=== PATIENT | female | born 1935 | race Hispanic/Latino ===

== ENCOUNTER → 2017-11-27 | Outpatient (CLI) | payer OTHER | END | disposition home or self-care (01) | LOC: RAH 11:33 | PROVIDERS: ATTEND Internal Medicine | DX: I70.202 Unspecified atherosclerosis of native arteries of extremities, left leg (principal); M79.661 Pain in right lower leg; M79.605 Pain in left leg; I10 Essential (primary) hypertension; E11.9 Type 2 diabetes mellitus without complications; E78.2 Mixed hyperlipidemia | CPT/HCPCS: 93925 ==

== ENCOUNTER 2018-11-07 16:30 | Emergency (ER) | payer OTHER | END 2018-11-07 18:51 | disposition home or self-care (01) | LOC: EDH 16:30 | DX: S93.422A Sprain of deltoid ligament of left ankle, initial encounter (principal); X50.1XXA Overexertion from prolonged static or awkward postures, initial encounter; Y93.89 Activity, other specified; Y92.098 Other place in other non-institutional residence as the place of occurrence of the external cause; Y99.8 Other external cause status | CPT/HCPCS: 73610 ==

== ENCOUNTER 2019-08-04 13:43 | Observation (INO) | payer OTHER ==
[~2019-08-04] VITALS: Ht 157.5 cm; Wt 70.5 kg
[2019-08-04] MEDS ORDERED: NITROGLYCERIN 1GM/1 INCH PACKET TD ONE (14:55)
[2019-08-04 14:58] LABS: BASOPHILS % (AUTO) 0.4 % (0.0-5.0); EOSINOPHILS % (AUTO) 1.6 % (0.0-8.0); HEMATOCRIT 41.1 % (36-48); MEAN CORPUSCULAR HEMOGLOBIN 28.3 pg (27.0-33.0); MEAN CORPUSCULAR HGB CONC 32.4 g/dL (32.0-36.0); MEAN CORPUSCULAR VOLUME 87.4 fL (79-99); MONOCYTES % (AUTO) 6.6 % (3.0-13.0); NEUTROPHILS % (AUTO) 61.2 % (40.0-77.0); PLATELET COUNT (AUTO) 224 K/uL (130-400); RED CELL DISTRIBUTION WIDTH 13.3 % (11.0-15.5); WHITE BLOOD COUNT (AUTO) 10.3 K/uL (4.8-10.8)
[2019-08-04 15:05] LABS: CREATININE 1.1 mg/dL (0.5-1.5); POTASSIUM 3.8 mmol/L (3.5-5.1)
[2019-08-04 15:10] LABS: BILIRUBIN,TOTAL 0.6 mg/dL (0.2-1.0); TOTAL PROTEIN, SERUM 8.6 g/dL (6.0-8.3)
[2019-08-04 15:14] LABS: INR 0.95 (0.85-1.15); PARTIAL THROMBOPLASTIN TIME 25.2 SEC (26.3-35.5)
[2019-08-04] MEDS ORDERED: LIDOCAINE 1%-EPI 1:100,000 20 ML VIAL IJ ONE (15:26)
[2019-08-04] MEDS ORDERED: SODIUM CHLORIDE 0.9% 500ML 500 ML IV ONE (15:31)
[2019-08-04] MEDS ORDERED: LABETALOL 20 MG/4 ML DISP.SYRIN IV ONE (15:54)
[2019-08-04] MEDS ORDERED: DEXTROSE 50%-WATER 50 ML DISP.SYRIN IV PRN (18:45)
[2019-08-04] MEDS ORDERED: ACETAMINOPHEN 325 MG TAB PO PRN ×2 (18:45)
[2019-08-04] MEDS ORDERED: ONDANSETRON HCL 4 MG/2 ML VIAL IV PRN (18:45)
[2019-08-04] MEDS ORDERED: GLUCAGON 1MG KIT 1 MG ML IM PRN (18:45)
[2019-08-04] MEDS ORDERED: HYDRALAZINE HCL 20 MG/ML VIAL IV PRN (18:45)
[2019-08-04 19:47] LABS: APPEARANCE,URINE Clear (CLEAR); BILIRUBIN,URINE Negative (NEGATIVE); COLOR,URINE Yellow (YELLOW); GLUCOSE, URINE (UA) Negative (NEGATIVE); KETONES,URINE Negative (NEGATIVE); LEUKOCYTE ESTERASE ,URINE Negative (NEGATIVE); NITRATE,URINE Negative (NEGATIVE); OCCULT BLOOD,URINE Negative (NEGATIVE); PH,URINE 5.5 (5.0-8.0); PROTEIN,URINE Negative (NEGATIVE); UROBILINOGEN,URINE 0.2 mg/dL (0.2-1.0)
[2019-08-04 20:11] LABS: BACTERIA,URINE None Seen /HPF (None Seen); RBC,URINE 0-1 /HPF (0-1); WBC,URINE 0-1 /HPF (0-1)
[2019-08-04 20:38] VITALS: BP 166/69
[2019-08-04] MEDS: FAMOTIDINE 20MG TAB 20 MG TAB PO SCH (21:30)
[2019-08-04] MEDS: ATORVASTATIN CALCIUM 20 MG TABLET PO SCH (21:30)
[2019-08-04] MEDS: INSULIN HUMULIN R 100 UNIT/ML 3ML SQ SCH (21:32)
--- NOTE | 2019-08-04 22:00 | NUR ---
Home Meds Patient informed to bring home medications in the morning. Pt Alert X3, stable, good, denies any issue at this time. Call light within reach.
[2019-08-05] VITALS (8 sets, daily range): BP systolic 150–172; BP diastolic 60–82
--- NOTE | 2019-08-05 02:00 | NUR ---
SPOKE WITH [facility] HOSPITALIST ABOUT PATIENT CONCERN. NEW ORDERS RECEIVED INFORMED MD ABOUT TINGLING TO RIGHT FINGERS, AND LEFT LOWER FOOT. PATIENT ALSO IS SOMEWHAT ANXIOUS, AOX3, STABLE, AND DENIES ANY CHEST PAIN. BP ALSO BETTER AFTER HYDRALAZINE IV DOSE. CARDIAC PANEL SHOWS TROPONIN DECREASE FROM 0.20 TO 0.17.
[2019-08-05] MEDS ORDERED: HYDROXYZINE HCL 25 MG TABLET PO SCH (02:45)
[2019-08-05] MEDS ORDERED: HYDROXYZINE HCL 25 MG TABLET ONE (03:15)
[2019-08-05 03:59] LABS: BASOPHILS % (AUTO) 0.4 % (0.0-5.0); HEMATOCRIT 34.6 % (36-48); LYMPHOCYTES % (AUTO) 40.8 % (21.0-51.0); MEAN CORPUSCULAR HEMOGLOBIN 28.5 pg (27.0-33.0); MEAN CORPUSCULAR HGB CONC 33.2 g/dL (32.0-36.0); MEAN CORPUSCULAR VOLUME 85.6 fL (79-99); MONOCYTES % (AUTO) 9.7 % (3.0-13.0); NEUTROPHILS % (AUTO) 46.7 % (40.0-77.0); PLATELET COUNT (AUTO) 208 K/uL (130-400); RED BLOOD CELL COUNT(AUTO) 4.04 MIL/uL (4.00-5.50); RED CELL DISTRIBUTION WIDTH 13.4 % (11.0-15.5); WHITE BLOOD COUNT (AUTO) 9.8 K/uL (4.8-10.8)
[2019-08-05 04:20] LABS: ALBUMIN 3.3 g/dL (3.5-5.0); BILIRUBIN,DIRECT 0.1 mg/dL (0.0-0.3); BILIRUBIN,TOTAL 0.5 mg/dL (0.2-1.0); CREATININE 0.9 mg/dL (0.5-1.5); POTASSIUM 3.4 mmol/L (3.5-5.1); TOTAL PROTEIN, SERUM 6.9 g/dL (6.0-8.3)
[2019-08-05] MEDS: INSULIN HUMULIN R 100 UNIT/ML 3ML SQ SCH ×4 (06:05→21:00)
--- NOTE | 2019-08-05 06:50 | NUR ---
Patient aox3, family friend at bedside. Patient denies any chest pain and or tingling to upper/lower extremities. Call light within reach, no issues noted. patient verbalizes understanding regarding bedrest and pressing the call light if needs assistance.
[2019-08-05] MEDS: FAMOTIDINE 20MG TAB 20 MG TAB PO SCH ×2 (08:03→21:52)
[2019-08-05] MEDS: AMLODIPINE BESYLATE 5 MG TAB PO SCH (08:03)
[2019-08-05] MEDS ORDERED: LISINOPRIL 40 MG TABLET PO SCH (09:00)
[2019-08-05] MEDS ORDERED: SITA100T12 PO (09:08)
[2019-08-05] MEDS ORDERED: ATOR20TA65 PO (09:08)
[2019-08-05] MEDS ORDERED: METF-446 PO (09:08)
[2019-08-05] MEDS ORDERED: AMLO5TAB5 PO ×2 (09:08→14:09)
[2019-08-05] MEDS ORDERED: LISI40TA4 PO (09:08)
[2019-08-05] MEDS ORDERED: NON-FORMULARY MEDICATION 1 EACH (Sitagliptin Phosphate (Januvia) 100 MG) PO SCH (09:15)
--- NOTE | 2019-08-05 15:12 | NUR ---
[id number] Patient signed MERINO Letter, I faxed Merino Letter to [phone] and placed in chart under consent tab.
--- NOTE | 2019-08-05 15:36 | NUR ---
INITIAL Patient lives alone. Her spouse recently was placed in a halfway long term care administrator. Emergency contact is friend, Crystal Clark, [phone]. No home services but has private pay sitter. DME: cane, wheelchair, shower chair, walker with seat. Patient reports she is independent in completing ADL's and drives. PCP is Dr. Corinne Kilpatrick. Pharmacy is [facility] located in [place]. DCP is home. Addendum: 08/05/19 at 1538 by CRYSTAL DE JESUS SS Amended: Links added.
--- NOTE | 2019-08-05 16:49 | NUR ---
NOTIFIED DR. Anisa NOLASCO PT. STATES SHE IS UNABLE TO BE DISCHARGED TODAY AND HAS TO STAY "UNTIL TOMORROW, BECAUSE I LIVE ALONE. THERE'S NO ONE TO STAY WITH ME." ORDER RECEIVED, OK TO HOLD DISCHARGE.
[2019-08-05] MEDS ORDERED: POTASSIUM CHLORIDE 20 MEQ ERTAB PO PRN (19:15)
[2019-08-05] MEDS ORDERED: LIDOCAINE HCL-MPF 1% 2ML VIAL IV PRN (19:15)
[2019-08-05] MEDS ORDERED: POTASSIUM CHLORIDE 20MEQ/100ML 100 ML IV PRN (19:15)
[2019-08-05] MEDS ORDERED: POTASSIUM CHLORIDE 10% ELIXIR 20 MEQ/15 ML UDCUP PO PRN (19:15)
[2019-08-05] MEDS ORDERED: ATORVASTATIN CALCIUM 20 MG TABLET PO SCH (21:00)
[2019-08-05] MEDS ORDERED: NON-FORMULARY MEDICATION 1 EACH (Metformin HCl 1,000 MG) PO SCH (21:00)
[2019-08-05] MEDS: ATORVASTATIN CALCIUM 20 MG TABLET PO SCH ×2 (21:51→21:54)
[2019-08-05] MEDS: HYDRALAZINE HCL 10 MG TABLET PO SCH (21:51)
[2019-08-05] MEDS: LISINOPRIL 40 MG TABLET PO SCH (21:51)
[2019-08-05] MEDS: MAGNESIUM OXIDE 400 MG TABLET PO SCH (21:52)
[2019-08-06 04:00] VITALS: BP 165/69
[2019-08-06 04:06] VITALS: BP 160/59
[2019-08-06] MEDS: INSULIN HUMULIN R 100 UNIT/ML 3ML SQ SCH ×2 (05:51→11:47)
[2019-08-06 07:37] VITALS: BP 161/74
--- NOTE | 2019-08-06 07:50 | NUR ---
DR. Anisa NOLASCO IN ROOM SPEAKING WITH PT. RE:DISCHARGE DISPOSITION. QUESTIONS ANSWERED BY DR. NOLASCO.
[2019-08-06] MEDS ORDERED: AMLODIPINE BESYLATE 5 MG TAB PO SCH (09:00)
[2019-08-06] MEDS: LISINOPRIL 40 MG TABLET PO SCH (09:07)
[2019-08-06] MEDS: FAMOTIDINE 20MG TAB 20 MG TAB PO SCH (09:07)
[2019-08-06] MEDS: MAGNESIUM OXIDE 400 MG TABLET PO SCH (09:07)
[2019-08-06] MEDS: HYDRALAZINE HCL 10 MG TABLET PO SCH ×2 (09:08→13:30)
[2019-08-06] MEDS: AMLODIPINE BESYLATE 5 MG TAB PO SCH (09:08)
[2019-08-06 11:27] VITALS: BP 184/74
[2019-08-06 13:09] VITALS: BP 153/82
--- NOTE | 2019-08-06 14:30 | NUR ---
HL REMOVED, CATHETER INTACT. DISCHARGE INSTRUCTIONS GIVEN, PT. VERBALIZED UNDERSTANDING.
--- NOTE | 2019-08-06 14:43 | NUR ---
DISCHARGED HOME VIA W/C WITH BELONGINGS ACCOMPANIED BY JEANA MARIE.
== END 2019-08-06 14:35 | disposition home or self-care (01) ==
LOC: EDH 13:43 → INTOOBSV 18:31 → EDHIP 18:31 → 2DH 20:35
PROVIDERS: ADMIT Internal Medicine; ATTEND Internal Medicine
DX: S01.01XA Laceration without foreign body of scalp, initial encounter (principal); I16.0 Hypertensive urgency; E78.2 Mixed hyperlipidemia; I13.10 Hypertensive heart and chronic kidney disease without heart failure, with stage 1 through stage 4 chronic kidney disease, or unspecified chronic kidney disease; E11.22 Type 2 diabetes mellitus with diabetic chronic kidney disease; N18.2 Chronic kidney disease, stage 2 (mild); E11.42 Type 2 diabetes mellitus with diabetic polyneuropathy; E11.51 Type 2 diabetes mellitus with diabetic peripheral angiopathy without gangrene; E11.59 Type 2 diabetes mellitus with other circulatory complications; I70.0 Atherosclerosis of aorta; F41.1 Generalized anxiety disorder; I71.03 Dissection of thoracoabdominal aorta; Z90.710 Acquired absence of both cervix and uterus; Z90.49 Acquired absence of other specified parts of digestive tract; Z79.84 Long term (current) use of oral hypoglycemic drugs; Z79.899 Other long term (current) drug therapy; Z88.0 Allergy status to penicillin; Z91.048 Other nonmedicinal substance allergy status; W10.9XXA Fall (on) (from) unspecified stairs and steps, initial encounter; Y93.89 Activity, other specified; Y92.89 Other specified places as the place of occurrence of the external cause
CPT/HCPCS: 12001; 36415 ×2; 70450; 72125; 80048; 80053; 80076; 81001; 82948 ×7; 84484 ×2; 85025 ×2; 85610; 85730; 93005; 96374; 99285; A4600; G0378 ×44; J0360; J1815 ×3; J3490; J7040

== ENCOUNTER → 2020-07-22 | Outpatient (CLI) | payer OTHER ==
[~2020-07-22] MED LIST: AMLO5TAB5 PO; ATOR20TA65 PO; LISI40TA9 PO; METF-446 PO; SITA100T12 PO
[2020-07-22 10:35] LABS: BASOPHILS % (AUTO) 0.6 % (0.0-5.0); HEMATOCRIT 42.4 % (36-48); LYMPHOCYTES % (AUTO) 35.5 % (21.0-51.0); MEAN CORPUSCULAR HEMOGLOBIN 29.1 pg (27.0-33.0); MEAN CORPUSCULAR HGB CONC 33.3 g/dL (32.0-36.0); MEAN CORPUSCULAR VOLUME 87.6 fL (79-99); MONOCYTES % (AUTO) 6.2 % (3.0-13.0); NEUTROPHILS % (AUTO) 54.6 % (40.0-77.0); PLATELET COUNT (AUTO) 207 K/uL (130-400); RED BLOOD CELL COUNT(AUTO) 4.84 MIL/uL (4.00-5.50); RED CELL DISTRIBUTION WIDTH 12.9 % (11.0-15.5); WHITE BLOOD COUNT (AUTO) 6.9 K/uL (4.8-10.8)
[2020-07-22 10:54] LABS: ALBUMIN 3.6 g/dL (3.5-5.0); BILIRUBIN,TOTAL 0.6 mg/dL (0.2-1.0); CREATININE 1.1 mg/dL (0.5-1.5); HEMOGLOBIN A1C 7.2 % (4.0-6.0); POTASSIUM 4.3 mmol/L (3.5-5.1); TOTAL PROTEIN, SERUM 7.7 g/dL (6.0-8.3)
== END | disposition home or self-care (01) ==
LOC: LAB 09:50
PROVIDERS: ATTEND Internal Medicine
DX: E78.2 Mixed hyperlipidemia (principal); E11.618 Type 2 diabetes mellitus with other diabetic arthropathy; I13.10 Hypertensive heart and chronic kidney disease without heart failure, with stage 1 through stage 4 chronic kidney disease, or unspecified chronic kidney disease
CPT/HCPCS: 36415; 80053; 80061; 82043; 83036; 85025

== ENCOUNTER → 2021-01-22 | Outpatient (CLI) | payer OTHER | END | disposition home or self-care (01) | LOC: RAH 12:31 | PROVIDERS: ATTEND Internal Medicine | DX: M17.12 Unilateral primary osteoarthritis, left knee (principal) | CPT/HCPCS: 73560 ==

== ENCOUNTER 2021-03-06 15:21 | Inpatient (IN) | payer OTHER ==
[~2021-03-06] VITALS: Ht 149.9 cm; Wt 77.2 kg
[2021-03-06 15:39] LABS: BASOPHILS % (AUTO) 0.5 % (0.0-5.0); EOSINOPHILS % (AUTO) 2.1 % (0.0-8.0); HEMATOCRIT 40.9 % (36-48); LYMPHOCYTES % (AUTO) 35.4 % (21.0-51.0); MEAN CORPUSCULAR HEMOGLOBIN 29.9 pg (27.0-33.0); MEAN CORPUSCULAR HGB CONC 34.2 g/dL (32.0-36.0); MEAN CORPUSCULAR VOLUME 87.4 fL (79-99); NEUTROPHILS % (AUTO) 53.8 % (40.0-77.0); PLATELET COUNT (AUTO) 209 K/uL (130-400); RED BLOOD CELL COUNT(AUTO) 4.68 MIL/uL (4.00-5.50); RED CELL DISTRIBUTION WIDTH 12.9 % (11.0-15.5); WHITE BLOOD COUNT (AUTO) 9.5 K/uL (4.8-10.8)
[2021-03-06] MEDS ORDERED: ASPIRIN 325MG EC TAB PO ONE (15:44)
[2021-03-06] MEDS ORDERED: NITROGLYCERIN 1GM OINT 1 INCH/1GM TD ONE ×2 (15:44→16:00)
[2021-03-06] MEDS ORDERED: NITROGLYCERIN 0.4 MG SL TAB SL ONE (15:44)
[2021-03-06] MEDS ORDERED: METOPROLOL TARTRATE 1 MG/ML 5ML VIAL IV ONE ×3 (15:44→18:20)
[2021-03-06] MEDS ORDERED: DILTIAZEM 50MG VIAL IV ONE (15:45)
[2021-03-06 15:51] LABS: CREATININE 0.9 mg/dL (0.5-1.5)
[2021-03-06 15:56] LABS: ALBUMIN 3.8 g/dL (3.5-5.0); BILIRUBIN,TOTAL 0.5 mg/dL (0.2-1.0); MAGNESIUM 2.1 mg/dL (1.80-2.40); TOTAL PROTEIN, SERUM 8.2 g/dL (6.0-8.3)
[2021-03-06] MEDS ORDERED: DILTIAZEM 25MG INJ IVP SCH (16:00)
[2021-03-06] MEDS ORDERED: ASPIRIN 325MG TAB PO ONE (16:00)
[2021-03-06] MEDS ORDERED: NITROGLYCERIN 0.4 MG SL TAB SL PRN (16:00)
[2021-03-06 16:13] LABS: B-TYPE NATRIURETIC PEPTIDE 223 pg/mL (0-100)
[2021-03-06 16:17] LABS: APPEARANCE,URINE Clear (CLEAR); BILIRUBIN,URINE Negative (NEGATIVE); COLOR,URINE Yellow (YELLOW); GLUCOSE, URINE (UA) Negative (NEGATIVE); KETONES,URINE Negative (NEGATIVE); LEUKOCYTE ESTERASE ,URINE Negative (NEGATIVE); NITRATE,URINE Negative (NEGATIVE); OCCULT BLOOD,URINE Negative (NEGATIVE); PROTEIN,URINE Negative (NEGATIVE); UROBILINOGEN,URINE 0.2 mg/dL (0.2-1.0)
[2021-03-06] MEDS: METOPROLOL TARTRATE 25 MG TAB PO SCH ×2 (18:35→19:20)
[2021-03-06] MEDS ORDERED: HYDR-4153 PO (19:35)
[2021-03-06 20:05] VITALS: BP 129/93
[2021-03-06] MEDS: ENOXAPARIN SODIUM 60 MG/0.6 ML SQ SCH (20:50)
[2021-03-06] MEDS ORDERED: PITA2TAB2 PO (21:17)
[2021-03-06] MEDS ORDERED: CLOPIDOGREL 300MG TAB PO ONE (22:30)
[2021-03-06] MEDS ORDERED: CLOPIDOGREL 300MG TAB ONE (22:52)
[2021-03-06 23:50] VITALS: BP 133/78
[2021-03-07 03:54] VITALS: BP 138/85
[2021-03-07 06:45] LABS: BASOPHILS % (AUTO) 0.6 % (0.0-5.0); LYMPHOCYTES % (AUTO) 37.9 % (21.0-51.0); MEAN CORPUSCULAR HGB CONC 32.8 g/dL (32.0-36.0); MEAN CORPUSCULAR VOLUME 88.2 fL (79-99); MONOCYTES % (AUTO) 9.2 % (3.0-13.0); PLATELET COUNT (AUTO) 211 K/uL (130-400); RED BLOOD CELL COUNT(AUTO) 4.42 MIL/uL (4.00-5.50); WHITE BLOOD COUNT (AUTO) 7.9 K/uL (4.8-10.8)
[2021-03-07 07:12] LABS: POTASSIUM 3.9 mmol/L (3.5-5.1)
[2021-03-07] MEDS ORDERED: ATORVASTATIN 40 MG TABLET PO SCH (07:30)
[2021-03-07 08:00] VITALS: BP 135/79
[2021-03-07 08:12] LABS: HEMOGLOBIN A1C 7.1 % (4.0-6.0)
[2021-03-07 08:17] LABS: CHOLESTEROL 218 mg/dL (<200); HDL CHOLESTEROL 49 mg/dL (35-85); LDL DIRECT 138 mg/dL (0-99); TRIGLYCERIDES 127 mg/dL (30-200)
[2021-03-07] MEDS: METOPROLOL TARTRATE 25 MG TAB PO SCH ×3 (08:40→20:39)
[2021-03-07] MEDS: NITROGLYCERIN 1GM OINT 1 INCH/1GM TD SCH ×3 (08:40→23:50)
[2021-03-07] MEDS: ENOXAPARIN SODIUM 60 MG/0.6 ML SQ SCH ×2 (08:41→20:40)
[2021-03-07] MEDS ORDERED: ASPIRIN 325MG TAB PO SCH (09:00)
[2021-03-07] MEDS ORDERED: PANTOPRAZOLE 40 MG TAB DR PO SCH (09:30)
[2021-03-07 11:39] VITALS: BP 130/64
[2021-03-07] MEDS ORDERED: 0.9% NACL 500ML IV.SOLN 500 ML IV SCH (12:00)
[2021-03-07] MEDS ORDERED: SOLU-MEDROL 125MG VIAL IVP PRN (12:00)
[2021-03-07] MEDS ORDERED: DiphenhydrAMINE HCL 50 MG/ML VIAL IVP PRN (12:00)
[2021-03-07] MEDS: PANTOPRAZOLE 40 MG TAB DR PO SCH (15:40)
[2021-03-07 15:55] VITALS: BP 129/57
[2021-03-07] MEDS: INSULIN HUMULIN R 100 UNIT/ML 3ML SQ SCH ×3 (16:30→20:40)
[2021-03-07 20:03] VITALS: BP 125/71
[2021-03-07 23:18] VITALS: BP 137/89
[2021-03-08] VITALS (11 sets, daily range): BP systolic 123–151; BP diastolic 73–98
[2021-03-08 04:03] LABS: INR 1.06 (0.85-1.15); PROTHROMBIN TIME 11.5 SEC (9.6-11.6)
[2021-03-08 04:04] LABS: PARTIAL THROMBOPLASTIN TIME 32.9 SEC (26.3-35.5)
[2021-03-08 04:19] LABS: CREATININE 1.1 mg/dL (0.5-1.5); MAGNESIUM 1.9 mg/dL (1.80-2.40); PHOSPHORUS 3.2 mg/dL (2.5-4.9); POTASSIUM 4.1 mmol/L (3.5-5.1)
[2021-03-08] MEDS: INSULIN HUMULIN R 100 UNIT/ML 3ML SQ SCH ×7 (07:30→21:29)
[2021-03-08] MEDS: ENOXAPARIN SODIUM 60 MG/0.6 ML SQ SCH ×2 (09:00→21:03)
[2021-03-08] MEDS ORDERED: CLOPIDOGREL 75MG TAB PO SCH (09:00)
[2021-03-08] MEDS: ASPIRIN 325MG TAB PO SCH (09:00)
[2021-03-08] MEDS: NITROGLYCERIN 1GM OINT 1 INCH/1GM TD SCH ×3 (09:19→23:31)
[2021-03-08] MEDS: METOPROLOL TARTRATE 25 MG TAB PO SCH ×3 (09:20→21:02)
[2021-03-08] MEDS: PANTOPRAZOLE 40 MG TAB DR PO SCH (09:21)
[2021-03-08] MEDS ORDERED: IOHEXOL-350 50ML VIAL IV ONE (10:05)
[2021-03-08] MEDS ORDERED: MIDAZOLAM HCL 1 MG/ML 2ML VIAL ONE (10:05)
[2021-03-08] MEDS ORDERED: NITROGLYCERIN 50MG VIAL IV ONE (10:05)
[2021-03-08] MEDS ORDERED: FENTANYL CITRATE PF 50 MCG/1 ML 2ML VIAL ONE (10:05)
[2021-03-08] MEDS ORDERED: IOHEXOL 350 MG/ML 100ML INFUS..BTL IV ONE (10:05)
[2021-03-08] MEDS ORDERED: LIDOCAINE HCL 400MG/20ML VIAL ONE (10:06)
[2021-03-08] MEDS ORDERED: METOPROLOL TARTRATE 1 MG/ML 5ML VIAL IV ONE (10:44)
[2021-03-08] MEDS ORDERED: IOHEXOL-350 75 ML VIAL IV ONE (10:51)
[2021-03-08] MEDS ORDERED: CLINDAMYCIN IVPB 900MG/50ML 50 ML IV ONE (17:30)
[2021-03-08] MEDS ORDERED: AMIODARONE 900MG VIAL 900 MG in DEXTROSE 5%-WATER 500 ML IV SCH (18:30)
[2021-03-08] MEDS ORDERED: AMIODARONE 900MG VIAL 150 MG in DEXTROSE 5%-WATER 100 ML IV SCH (18:30)
[2021-03-08] MEDS: ATORVASTATIN 40 MG TABLET PO SCH (21:02)
[2021-03-09] VITALS (27 sets, daily range): BP systolic 90–179; BP diastolic 43–96
[2021-03-09] MEDS ORDERED: EPINEPHRINE PF 1MG AMP 10 MG in 0.9% NACL 250ML 240 ML IV PRN (07:00)
[2021-03-09] MEDS ORDERED: NOREPINEPHRINE BITARTRATE 8 MG in DEXTROSE 5%-WATER 250 ML IV PRN (07:00)
[2021-03-09] MEDS ORDERED: AMINOCAPROIC ACID 5,000MG VIAL 15,000 MG in 0.9% NACL 500ML IV.SOLN 420 ML IV PRN (07:00)
[2021-03-09] MEDS: ENOXAPARIN SODIUM 60 MG/0.6 ML SQ SCH (07:11)
[2021-03-09] MEDS: INSULIN HUMULIN R 100 UNIT/ML 3ML SQ SCH ×4 (07:30→11:30)
[2021-03-09] MEDS: ASPIRIN 325MG TAB PO SCH (07:57)
[2021-03-09] MEDS: PANTOPRAZOLE 40 MG TAB DR PO SCH (08:06)
[2021-03-09] MEDS: METOPROLOL TARTRATE 25 MG TAB PO SCH ×2 (08:06→14:00)
[2021-03-09] MEDS: NITROGLYCERIN 1GM OINT 1 INCH/1GM TD SCH (08:06)
[2021-03-09] MEDS ORDERED: CLINDAMYCIN 900MG/6ML INJ ONE (10:31)
[2021-03-09] MEDS ORDERED: PAPAVERINE HCL 30 MG/ML 2ML VIAL ONE (10:31)
[2021-03-09] MEDS ORDERED: 0.9%NACL 1000ML 1,000 ML IV ONE (10:36)
[2021-03-09] MEDS: CLINDAMYCIN IVPB 900MG/50ML 50 ML IV SCH ×3 (10:45→22:29)
[2021-03-09] MEDS ORDERED: NITROGLYCERIN 50MG/D5W 250ML 1 BOT ONE (10:54)
[2021-03-09] MEDS ORDERED: HEPARIN 10,000 UNIT/10ML (1,000 UNIT/ML) VIAL ONE ×2 (11:03→12:15)
[2021-03-09] MEDS ORDERED: SODIUM BICARB 50MEQ 50ML VIAL 150 ML ONE ×2 (11:03→12:27)
[2021-03-09] MEDS ORDERED: LIDOCAINE PF 100MG/5ML (2%) SYRINGE 5ML ONE ×2 (11:03→11:04)
[2021-03-09] MEDS ORDERED: NOREPINEPHRINE BITARTRATE 1 MG/1 ML ML IV ONE (11:03)
[2021-03-09] MEDS ORDERED: EPINEPHRINE PF 1MG AMP ONE (11:03)
[2021-03-09] MEDS ORDERED: FENTANYL CITRATE PF 50 MCG/1 ML 20ML VIAL IJ ONE (11:03)
[2021-03-09] MEDS ORDERED: PROTAMINE SULFATE 10 MG/ML 25ML VIAL IV ONE (11:03)
[2021-03-09] MEDS ORDERED: ESMOLOL HCL 10 MG/ML 10 ML VIAL ONE (11:03)
[2021-03-09] MEDS ORDERED: AMINOCAPROIC ACID 5,000MG VIAL ONE (11:03)
[2021-03-09] MEDS ORDERED: PROPOFOL 10 MG/ML 20ML VIAL IV ONE (11:04)
[2021-03-09] MEDS ORDERED: ETOMIDATE 20MG VIAL ONE (11:04)
[2021-03-09] MEDS ORDERED: ROCURONIUM 10MG/1ML SYR 10 MG/ML ML ONE ×2 (11:04→13:51)
[2021-03-09] MEDS ORDERED: SUCCINYLCHOLINE CHLORIDE 20 MG/ML 10 ML VIAL ONE (11:04)
[2021-03-09] MEDS ORDERED: MIDAZOLAM HCL 1 MG/ML 2ML VIAL ONE (11:04)
[2021-03-09] MEDS ORDERED: ATROPINE 0.4MG VIAL IJ ONE (12:03)
[2021-03-09 12:21] LABS: ABG HCO3 19.6 mmol/L (21.0-28.0); ABG OXYGEN SATURATION 98.9 % (95.0-99.0); ABG PCO2 43 mmHg (32-45)
[2021-03-09 12:44] LABS: ABG BASE EXCESS 5.3 mmol/L (-2.0-3.0); ABG HCO3 29.8 mmol/L (21.0-28.0); ABG PCO2 43 mmHg (32-45)
[2021-03-09 13:27] LABS: ABG BASE EXCESS -3.3 mmol/L (-2.0-3.0); ABG HCO3 21.9 mmol/L (21.0-28.0); ABG OXYGEN SATURATION 98.8 % (95.0-99.0); ABG PCO2 40 mmHg (32-45)
[2021-03-09 14:50] LABS: ABG BASE EXCESS -2.6 mmol/L (-2.0-3.0); ABG HCO3 22.2 mmol/L (21.0-28.0); ABG OXYGEN SATURATION 96.9 % (95.0-99.0); ABG PCO2 39 mmHg (32-45)
[2021-03-09] MEDS ORDERED: ONDANSETRON 4MG INJ IV PRN (15:00)
[2021-03-09] MEDS ORDERED: POTASSIUM PHOS 15 mMOL+NS250ML 250 ML IV PRN (15:00)
[2021-03-09] MEDS ORDERED: INSULIN REGULAR, HUMAN 3ML 100 UNIT in 0.9%NACL 100ML 99 ML IV SCH ×2 (15:00)
[2021-03-09] MEDS ORDERED: MORPHINE 2 MG SYG IV PRN ×2 (15:00→15:30)
[2021-03-09] MEDS ORDERED: DEXTROSE 50%-WATER 50 ML DISP.SYRIN IV PRN (15:00)
[2021-03-09] MEDS ORDERED: NITROGLYCERIN 50MG/D5W 250ML 250 BOT IV SCH (15:00)
[2021-03-09] MEDS ORDERED: EPINEPHRINE PF 1MG AMP 10 MG in DEXTROSE 5%-WATER 250 ML IV PRN (15:00)
[2021-03-09] MEDS ORDERED: 0.9%NACL 10ML VIAL IVP PRN (15:00)
[2021-03-09] MEDS ORDERED: AMINOCAPROIC ACID 5,000MG VIAL 15,000 MG in 0.9% NACL 250ML 250 ML IV SCH (15:00)
[2021-03-09] MEDS ORDERED: NOREPINEPHRIN 4MG/NS 250ML 250 ML IV PRN (15:00)
[2021-03-09] MEDS ORDERED: PROPOFOL 1000 MG/100 ML 100 ML IV PRN (15:00)
[2021-03-09] MEDS ORDERED: 0.9%NACL 1000ML 1,000 ML IV SCH (15:00)
[2021-03-09] MEDS ORDERED: ACETAMINOPHEN 650 MG SUPPOSITORY RC PRN (15:00)
[2021-03-09] MEDS ORDERED: ALBUMIN (HUMAN) 5% 250 ML IV PRN (15:00)
[2021-03-09] MEDS ORDERED: MORPHINE 4 MG SYG IV PRN (15:00)
[2021-03-09] MEDS ORDERED: 0.9% NACL 500ML IV.SOLN 500 ML IV SCH (15:00)
[2021-03-09] MEDS ORDERED: GLUCAGON 1MG KIT 1 MG ML IM PRN (15:00)
[2021-03-09 15:39] LABS: ABG BASE EXCESS -2.9 mmol/L (-2.0-3.0); ABG HCO3 22.2 mmol/L (21.0-28.0); ABG OXYGEN SATURATION 91.3 % (95.0-99.0); ABG PCO2 39 mmHg (32-45)
[2021-03-09 15:42] LABS: ABG BASE EXCESS -3.4 mmol/L (-2.0-3.0); ABG HCO3 21.4 mmol/L (21.0-28.0); ABG OXYGEN SATURATION 92.3 % (95.0-99.0); ABG PCO2 38 mmHg (32-45)
[2021-03-09 16:04] LABS: HEMATOCRIT 29.3 % (36-48); MEAN CORPUSCULAR HEMOGLOBIN 29.9 pg (27.0-33.0); MEAN CORPUSCULAR HGB CONC 33.4 g/dL (32.0-36.0); MEAN CORPUSCULAR VOLUME 89.3 fL (79-99); RED BLOOD CELL COUNT(AUTO) 3.28 MIL/uL (4.00-5.50); RED CELL DISTRIBUTION WIDTH 13.2 % (11.0-15.5); WHITE BLOOD COUNT (AUTO) 29.4 K/uL (4.8-10.8)
[2021-03-09 16:17] LABS: CREATININE 1.4 mg/dL (0.5-1.5); MAGNESIUM 1.6 mg/dL (1.80-2.40); PHOSPHORUS 3.7 mg/dL (2.5-4.9); POTASSIUM 4.2 mmol/L (3.5-5.1)
[2021-03-09 16:40] LABS: ABG BASE EXCESS 2.2 mmol/L (-2.0-3.0); ABG HCO3 26.1 mmol/L (21.0-28.0); ABG PCO2 38 mmHg (32-45)
[2021-03-09] MEDS ORDERED: FUROSEMIDE 40MG VIAL IV STA (16:59)
[2021-03-09] MEDS ORDERED: HYDRALAZINE 20MG/ML VIAL IV PRN (17:00)
[2021-03-09] MEDS: SODIUM BICARB 50MEQ 50ML VIAL IV PRN (17:01)
[2021-03-09 17:05] LABS: INR 1.19 (0.85-1.15); PROTHROMBIN TIME 12.8 SEC (9.6-11.6)
[2021-03-09] MEDS: MAGNESIUM 2GM PREMIX 50ML 50 ML IV PRN (17:22)
[2021-03-09] MEDS: FAMOTIDINE 20MG VIAL IV SCH (17:30)
[2021-03-09] MEDS: POTASSIUM CHLORIDE 20MEQ/100ML 100 ML IV PRN ×4 (18:29→21:10)
[2021-03-09 18:37] LABS: ABG BASE EXCESS 1.2 mmol/L (-2.0-3.0); ABG HCO3 24.9 mmol/L (21.0-28.0); ABG OXYGEN SATURATION 97.9 % (95.0-99.0); ABG PCO2 36 mmHg (32-45)
[2021-03-09 19:33] LABS: ABG BASE EXCESS 0.8 mmol/L (-2.0-3.0); ABG HCO3 24.8 mmol/L (21.0-28.0); ABG OXYGEN SATURATION 97.3 % (95.0-99.0); ABG PCO2 38 mmHg (32-45)
[2021-03-09 20:29] LABS: ABG BASE EXCESS -0.4 mmol/L (-2.0-3.0); ABG HCO3 23.6 mmol/L (21.0-28.0); ABG OXYGEN SATURATION 97.8 % (95.0-99.0); ABG PCO2 36 mmHg (32-45)
[2021-03-09] MEDS: ATORVASTATIN 40 MG TABLET PO SCH (20:57)
[2021-03-09] MEDS: FUROSEMIDE 20MG VIAL IV SCH (20:57)
[2021-03-09] MEDS: ACETAMINOPHEN 325 MG TAB PO PRN (20:58)
[2021-03-09 21:46] LABS: ABG BASE EXCESS 0.5 mmol/L (-2.0-3.0); ABG HCO3 24.1 mmol/L (21.0-28.0); ABG OXYGEN SATURATION 96.9 % (95.0-99.0); ABG PCO2 35 mmHg (32-45)
[2021-03-09] MEDS ORDERED: DEXMEDETOMIDINE HCL 400 MCG in 0.9%NACL 100ML 100 ML IV SCH (22:00)
[2021-03-09 23:06] LABS: ABG BASE EXCESS 0.7 mmol/L (-2.0-3.0); ABG HCO3 22.9 mmol/L (21.0-28.0); ABG OXYGEN SATURATION 97.6 % (95.0-99.0); ABG PCO2 29 mmHg (32-45)
[2021-03-09] MEDS ORDERED: DEXMEDETOMIDINE 400MCG/NS100ML IV ONE (23:19)
[2021-03-10] VITALS (46 sets, daily range): BP systolic 87–161; BP diastolic 32–85
[2021-03-10 01:18] LABS: ABG OXYGEN SATURATION 97.2 % (95.0-99.0)
[2021-03-10 01:21] LABS: ABG BASE EXCESS -0.8 mmol/L (-2.0-3.0); ABG HCO3 22.2 mmol/L (21.0-28.0); ABG OXYGEN SATURATION 97.5 % (95.0-99.0); ABG PCO2 31 mmHg (32-45)
[2021-03-10] MEDS ORDERED: CALCIUM GLUC 1GM/10ML VIAL IV ONE (01:23)
[2021-03-10] MEDS: SODIUM BICARB 50MEQ 50ML VIAL IV PRN (01:24)
[2021-03-10] MEDS: CALCIUM GLUC 1GM 1 GM in 0.9%NACL 50ML 50 ML IV PRN ×2 (01:24→07:53)
[2021-03-10 04:07] LABS: ABG BASE EXCESS 1.1 mmol/L (-2.0-3.0); ABG HCO3 23.8 mmol/L (21.0-28.0); ABG OXYGEN SATURATION 96.7 % (95.0-99.0); ABG PCO2 31 mmHg (32-45)
[2021-03-10 04:34] LABS: HEMATOCRIT 27.5 % (36-48); MEAN CORPUSCULAR HEMOGLOBIN 29.4 pg (27.0-33.0); MEAN CORPUSCULAR HGB CONC 33.5 g/dL (32.0-36.0); MEAN CORPUSCULAR VOLUME 87.9 fL (79-99); RED BLOOD CELL COUNT(AUTO) 3.13 MIL/uL (4.00-5.50); RED CELL DISTRIBUTION WIDTH 13.3 % (11.0-15.5)
[2021-03-10 04:42] LABS: INR 1.1 (0.85-1.15); PROTHROMBIN TIME 11.9 SEC (9.6-11.6)
[2021-03-10 04:43] LABS: CREATININE 1.7 mg/dL (0.5-1.5); MAGNESIUM 1.8 mg/dL (1.80-2.40); PARTIAL THROMBOPLASTIN TIME 21.9 SEC (26.3-35.5); PHOSPHORUS 4.5 mg/dL (2.5-4.9); POTASSIUM 4.4 mmol/L (3.5-5.1)
[2021-03-10] MEDS: MAGNESIUM 2GM PREMIX 50ML 50 ML IV PRN (05:33)
[2021-03-10] MEDS: CLINDAMYCIN IVPB 900MG/50ML 50 ML IV SCH ×2 (06:01→15:53)
[2021-03-10 06:20] LABS: ABG BASE EXCESS 2.1 mmol/L (-2.0-3.0); ABG HCO3 24.1 mmol/L (21.0-28.0); ABG OXYGEN SATURATION 97.4 % (95.0-99.0); ABG PCO2 29 mmHg (32-45)
[2021-03-10] MEDS ORDERED: PHARMACY COMMUNICATION MISC SCH (06:30)
[2021-03-10 07:39] LABS: ABG BASE EXCESS 2.8 mmol/L (-2.0-3.0); ABG HCO3 26.1 mmol/L (21.0-28.0); ABG OXYGEN SATURATION 96.4 % (95.0-99.0); ABG PCO2 36 mmHg (32-45)
[2021-03-10] MEDS: ASPIRIN 325MG TAB PO SCH (09:00)
[2021-03-10] MEDS: FUROSEMIDE 20MG VIAL IV SCH ×2 (09:01→20:20)
[2021-03-10] MEDS: FAMOTIDINE 20MG VIAL IV SCH (09:01)
[2021-03-10 09:03] LABS: ABG BASE EXCESS 3.1 mmol/L (-2.0-3.0); ABG HCO3 26.5 mmol/L (21.0-28.0); ABG OXYGEN SATURATION 94.8 % (95.0-99.0); ABG PCO2 36 mmHg (32-45)
[2021-03-10] MEDS ORDERED: ASPIRIN 81MG CHEW TAB ONE (10:36)
[2021-03-10] MEDS: ACETAMINOPHEN 325 MG TAB PO PRN (10:39)
[2021-03-10] MEDS: TRAMADOL HCL 50 MG TABLET PO PRN (16:59)
[2021-03-10] MEDS: ATORVASTATIN 40 MG TABLET PO SCH (20:21)
[2021-03-11] VITALS (16 sets, daily range): BP systolic 117–163; BP diastolic 33–106
[2021-03-11] MEDS: TRAMADOL HCL 50 MG TABLET PO PRN ×3 (00:25→20:07)
[2021-03-11 06:10] LABS: HEMATOCRIT 26.9 % (36-48); MEAN CORPUSCULAR HEMOGLOBIN 29.3 pg (27.0-33.0); MEAN CORPUSCULAR VOLUME 91.5 fL (79-99); RED BLOOD CELL COUNT(AUTO) 2.94 MIL/uL (4.00-5.50); RED CELL DISTRIBUTION WIDTH 13.8 % (11.0-15.5); WHITE BLOOD COUNT (AUTO) 17.1 K/uL (4.8-10.8)
[2021-03-11 06:19] LABS: CREATININE 1.2 mg/dL (0.5-1.5); POTASSIUM 3.6 mmol/L (3.5-5.1)
[2021-03-11] MEDS: FUROSEMIDE 20MG VIAL IV SCH ×2 (08:45→19:51)
[2021-03-11] MEDS: FAMOTIDINE 20MG VIAL IV SCH (08:45)
[2021-03-11] MEDS: ASPIRIN 81MG CHEW TAB PO SCH (08:45)
[2021-03-11] MEDS ORDERED: METOPROLOL TARTRATE 25 MG TAB PO SCH ×2 (11:00→21:00)
[2021-03-11] MEDS: ENOXAPARIN SODIUM 30 MG/0.3 ML SQ SCH (18:09)
[2021-03-11] MEDS: ATORVASTATIN 40 MG TABLET PO SCH (19:51)
[2021-03-12] VITALS (9 sets, daily range): BP systolic 108–142; BP diastolic 45–98
[2021-03-12 03:42] LABS: HEMATOCRIT 22.1 % (36-48); MEAN CORPUSCULAR HEMOGLOBIN 29.1 pg (27.0-33.0); MEAN CORPUSCULAR HGB CONC 32.6 g/dL (32.0-36.0); MEAN CORPUSCULAR VOLUME 89.5 fL (79-99); RED BLOOD CELL COUNT(AUTO) 2.47 MIL/uL (4.00-5.50); RED CELL DISTRIBUTION WIDTH 13.4 % (11.0-15.5); WHITE BLOOD COUNT (AUTO) 15.9 K/uL (4.8-10.8)
[2021-03-12 04:01] LABS: CREATININE 1.2 mg/dL (0.5-1.5); POTASSIUM 3.6 mmol/L (3.5-5.1)
[2021-03-12] MEDS: FAMOTIDINE 20MG VIAL IV SCH (09:00)
[2021-03-12] MEDS ORDERED: FAMOTIDINE 20MG TAB ONE (09:30)
[2021-03-12] MEDS: ASPIRIN 81MG CHEW TAB PO SCH (09:48)
[2021-03-12] MEDS: FUROSEMIDE 20MG VIAL IV SCH ×2 (09:49→20:51)
[2021-03-12] MEDS: ENOXAPARIN SODIUM 30 MG/0.3 ML SQ SCH (09:50)
[2021-03-12] MEDS ORDERED: POLYETHYLENE GLYCOL 3350 17 GM POWD.PACK PO PRN (10:00)
[2021-03-12] MEDS: FAMOTIDINE 20MG TAB PO SCH (10:05)
[2021-03-12] MEDS ORDERED: HYDR-4153 PO (11:30)
[2021-03-12] MEDS ORDERED: SITA100T12 PO (11:30)
[2021-03-12] MEDS: KCL 20 MEQ ERTAB PO ONE ×2 (18:16→18:29)
[2021-03-12] MEDS: MAGNESIUM 2GM PREMIX 50ML 50 ML IV PRN (18:17)
[2021-03-12] MEDS ORDERED: KCL 20 MEQ ERTAB PO ONE (18:30)
[2021-03-12] MEDS: ATORVASTATIN 40 MG TABLET PO SCH (20:51)
[2021-03-12] MEDS: METOPROLOL TARTRATE 25 MG TAB PO SCH (20:51)
[2021-03-12] MEDS: DOCUSATE SODIUM 100 MG CAP PO SCH (20:51)
[2021-03-13] MEDS: TRAMADOL HCL 50 MG TABLET PO PRN ×2 (03:06→17:43)
[2021-03-13 04:00] VITALS: BP 128/66
[2021-03-13 04:17] LABS: HEMATOCRIT 22.6 % (36-48); MEAN CORPUSCULAR HEMOGLOBIN 29.4 pg (27.0-33.0); MEAN CORPUSCULAR HGB CONC 33.2 g/dL (32.0-36.0); MEAN CORPUSCULAR VOLUME 88.6 fL (79-99); RED BLOOD CELL COUNT(AUTO) 2.55 MIL/uL (4.00-5.50); RED CELL DISTRIBUTION WIDTH 13.3 % (11.0-15.5); WHITE BLOOD COUNT (AUTO) 14.6 K/uL (4.8-10.8)
[2021-03-13 04:25] LABS: CREATININE 1.3 mg/dL (0.5-1.5); POTASSIUM 4.1 mmol/L (3.5-5.1)
[2021-03-13 08:27] VITALS: BP 138/68
[2021-03-13] MEDS: FAMOTIDINE 20MG TAB PO SCH (09:43)
[2021-03-13] MEDS: METOPROLOL TARTRATE 25 MG TAB PO SCH ×2 (09:43→20:38)
[2021-03-13] MEDS: DOCUSATE SODIUM 100 MG CAP PO SCH ×2 (09:43→20:37)
[2021-03-13] MEDS: ASPIRIN 81MG CHEW TAB PO SCH (09:43)
[2021-03-13] MEDS: FUROSEMIDE 20MG VIAL IV SCH (09:43)
[2021-03-13] MEDS: ENOXAPARIN SODIUM 30 MG/0.3 ML SQ SCH (09:44)
[2021-03-13 12:24] VITALS: BP 135/61
[2021-03-13 16:10] VITALS: BP 128/63
[2021-03-13 19:46] VITALS: BP 112/59
[2021-03-13] MEDS: ATORVASTATIN 40 MG TABLET PO SCH (20:37)
[2021-03-13] MEDS: ACETAMINOPHEN 325 MG TAB PO PRN (20:40)
[2021-03-13] MEDS ORDERED: GUAIFENESIN SUGAR-FREE 100 MG/5 ML UDCUP ONE (23:28)
[2021-03-13] MEDS ORDERED: GUAIFENESIN SUGAR-FREE 100 MG/5 ML UDCUP PO PRN ×2 (23:30)
[2021-03-13 23:35] VITALS: BP 148/49
[2021-03-13] MEDS: ACETYLCYSTEINE 20% 200MG/ML 4ML VIAL IH SCH (23:54)
[2021-03-13] MEDS: IPRATROPIUM 0.5 MG/2.5 ML INH IH SCH (23:54)
[2021-03-14 03:00] VITALS: BP 117/50
[2021-03-14 03:04] VITALS: BP 117/50
[2021-03-14] MEDS: ACETYLCYSTEINE 20% 200MG/ML 4ML VIAL IH SCH ×2 (06:25→11:07)
[2021-03-14] MEDS: IPRATROPIUM 0.5 MG/2.5 ML INH IH SCH ×2 (06:25→11:07)
[2021-03-14 06:40] LABS: MAGNESIUM 2.4 mg/dL (1.80-2.40); POTASSIUM 3.1 mmol/L (3.5-5.1)
[2021-03-14] MEDS ORDERED: POTASSIUM CHLORIDE 10% ELIXIR 20 MEQ/15 ML UDCUP PO PRN (07:00)
[2021-03-14] MEDS ORDERED: LIDOCAINE HCL-MPF 1% 2ML VIAL IV PRN (07:00)
[2021-03-14] MEDS ORDERED: POTASSIUM CHLORIDE 20MEQ/100ML 100 ML IV PRN (07:00)
[2021-03-14 07:47] VITALS: BP 152/53
[2021-03-14] MEDS ORDERED: FUROSEMIDE 20 MG TABLET PO SCH (09:00)
[2021-03-14] MEDS: KCL 20 MEQ ERTAB PO PRN ×2 (09:26→15:20)
[2021-03-14] MEDS: ENOXAPARIN SODIUM 30 MG/0.3 ML SQ SCH (09:27)
[2021-03-14] MEDS: FAMOTIDINE 20MG TAB PO SCH (09:27)
[2021-03-14] MEDS: DOCUSATE SODIUM 100 MG CAP PO SCH (09:27)
[2021-03-14] MEDS: ASPIRIN 81MG CHEW TAB PO SCH (09:27)
[2021-03-14] MEDS: METOPROLOL TARTRATE 25 MG TAB PO SCH (09:27)
[2021-03-14 12:03] VITALS: BP 121/78
[2021-03-15] MEDS ORDERED: POTASSIUM CHLORIDE 10MEQ SR TAB PO SCH (09:00)
== END 2021-03-14 16:00 | DRG 233 ==
LOC: EDH 15:21 → EDHIP 17:29 → 4CH 19:55 → 2CV 03-09 13:32 → 2CH 03-10 09:40 → 2DH 03-11 14:18
PROVIDERS: ADMIT Internal Medicine; ATTEND Internal Medicine
PROC: 4A023N7 Measurement of Cardiac Sampling and Pressure, Left Heart, Percutaneous Approach (ICD-10-PCS; 2021-03-08)
PROC: B2111ZZ Fluoroscopy of Multiple Coronary Arteries using Low Osmolar Contrast (ICD-10-PCS; 2021-03-08)
PROC: B246ZZ4 Ultrasonography of Right and Left Heart, Transesophageal (ICD-10-PCS; 2021-03-09)
PROC: 02100Z9 Bypass Coronary Artery, One Artery from Left Internal Mammary, Open Approach (ICD-10-PCS; principal; 2021-03-09 11:00)
PROC: 021209W Bypass Coronary Artery, Three Arteries from Aorta with Autologous Venous Tissue, Open Approach (ICD-10-PCS; 2021-03-09 11:00)
PROC: 06BQ4ZZ Excision of Left Saphenous Vein, Percutaneous Endoscopic Approach (ICD-10-PCS; 2021-03-09 11:00)
PROC: 06BP4ZZ Excision of Right Saphenous Vein, Percutaneous Endoscopic Approach (ICD-10-PCS; 2021-03-09 11:00)
PROC: 5A1935Z Respiratory Ventilation, Less than 24 Consecutive Hours (ICD-10-PCS; 2021-03-10)
PROC: 0BH17EZ Insertion of Endotracheal Airway into Trachea, Via Natural or Artificial Opening (ICD-10-PCS; 2021-03-10)
DX: I21.4 Non-ST elevation (NSTEMI) myocardial infarction (principal); I50.31 Acute diastolic (congestive) heart failure; I71.03 Dissection of thoracoabdominal aorta; J95.1 Acute pulmonary insufficiency following thoracic surgery; D68.59 Other primary thrombophilia; D62 Acute posthemorrhagic anemia; I13.0 Hypertensive heart and chronic kidney disease with heart failure and stage 1 through stage 4 chronic kidney disease, or unspecified chronic kidney disease; I48.19 Other persistent atrial fibrillation; E11.22 Type 2 diabetes mellitus with diabetic chronic kidney disease; E11.42 Type 2 diabetes mellitus with diabetic polyneuropathy; E11.51 Type 2 diabetes mellitus with diabetic peripheral angiopathy without gangrene; E11.65 Type 2 diabetes mellitus with hyperglycemia; E78.00 Pure hypercholesterolemia, unspecified; E78.2 Mixed hyperlipidemia; F41.1 Generalized anxiety disorder; I25.110 Atherosclerotic heart disease of native coronary artery with unstable angina pectoris; G31.9 Degenerative disease of nervous system, unspecified; I70.0 Atherosclerosis of aorta; M19.90 Unspecified osteoarthritis, unspecified site; N18.31 Chronic kidney disease, stage 3a; Z79.82 Long term (current) use of aspirin; Z79.84 Long term (current) use of oral hypoglycemic drugs; Z79.899 Other long term (current) drug therapy; Z90.49 Acquired absence of other specified parts of digestive tract; Z90.710 Acquired absence of both cervix and uterus; Z91.041 Radiographic dye allergy status; Z88.0 Allergy status to penicillin; Z91.14 Patient's other noncompliance with medication regimen; Z83.6 Family history of other diseases of the respiratory system; Z83.3 Family history of diabetes mellitus; Z82.0 Family history of epilepsy and other diseases of the nervous system; Z82.49 Family history of ischemic heart disease and other diseases of the circulatory system; Y83.8 Other surgical procedures as the cause of abnormal reaction of the patient, or of later complication, without mention of misadventure at the time of the procedure; Y92.89 Other specified places as the place of occurrence of the external cause
CPT/HCPCS: 36415; 36600; 71045; 80048; 80053; 80061; 81003; 82435; 82550; 82803; 82947; 82948; 83036; 83605; 83735; 83874; 83880; 84100; 84132; 84295; 84443; 84481; 84484; 85014; 85018; 85025; 85027; 85347; 85610; 85730; 86850; 86900; 86901; 86923; 93005; 93306; 93356; 93458; 93880; 94002; 94003; 94010; 94640; 94664; 97039; 99156; 99157; A7048; C1894; G0378; J0171; J0282; J0330; J0360; J0461; J0610; J1200; J1644; J1650; J1815; J1940; J2001; J2250; J2440; J2704; J2720; J2930; J3010; J3475; J3480; J3490; J7030; J7040; J7060; J7120; J7608; P9045; Q9967

== ENCOUNTER → 2021-10-07 | Outpatient (CLI) | payer OTHER | END | disposition home or self-care (01) | LOC: RAH 12:05 | PROVIDERS: ATTEND Internal Medicine | DX: M25.511 Pain in right shoulder (principal) | CPT/HCPCS: 73030 ==

== ENCOUNTER → 2022-05-04 | Outpatient (CLI) | payer OTHER | END | disposition home or self-care (01) | LOC: RAH 14:49 | PROVIDERS: ATTEND Internal Medicine | DX: R10.9 Unspecified abdominal pain (principal); Z90.49 Acquired absence of other specified parts of digestive tract | CPT/HCPCS: 74021 ==

== ENCOUNTER → 2022-07-06 | Outpatient (CLI) | payer OTHER | END | disposition home or self-care (01) | LOC: RAH 11:34 | PROVIDERS: ATTEND Internal Medicine | DX: R94.4 Abnormal results of kidney function studies (principal) | CPT/HCPCS: 76770 ==

== ENCOUNTER → 2023-07-22 | Emergency (ER) | payer OTHER ==
[~2023-07-22] VITALS: Ht 154.9 cm; Wt 66.7 kg
[~2023-07-22] MED LIST changes: -AMLO5TAB5 PO; -ATOR20TA65 PO; +LISI10TA24 PO; -LISI40TA9 PO; -METF-446 PO; -SITA100T12 PO
[2023-07-22 16:11] LABS: HEMATOCRIT 38.9 % (36-48); MEAN CORPUSCULAR HEMOGLOBIN 29.2 pg (27.0-33.0); MEAN CORPUSCULAR HGB CONC 33.4 g/dL (32.0-36.0); MEAN CORPUSCULAR VOLUME 87.4 fL (79-99); RED BLOOD CELL COUNT(AUTO) 4.45 MIL/uL (4.00-5.50); RED CELL DISTRIBUTION WIDTH 12.9 % (11.0-15.5); WHITE BLOOD COUNT (AUTO) 12.6 K/uL (4.8-10.8)
[2023-07-22 16:22] LABS: CREATININE 0.9 mg/dL (0.5-1.5)
[2023-07-22 16:27] LABS: ALBUMIN 3.8 g/dL (3.5-5.0); BILIRUBIN,TOTAL 0.7 mg/dL (0.2-1.0); TOTAL PROTEIN, SERUM 7.7 g/dL (6.0-8.3)
[2023-07-22] MEDS: HYDRALAZINE 20MG/ML VIAL IV ONE (17:00)
[2023-07-22] MEDS: FUROSEMIDE 40MG VIAL IV ONE (17:23)
[2023-07-22] MEDS: LABETALOL 20MG VIAL IV ONE (19:28)
[2023-07-22 20:16] VITALS: BP 144/45; PULSE 64; RESP 18; O2SAT 99
== END ==
LOC: EDH 15:34
DX: I10 Essential (primary) hypertension (principal); R51.9 Headache, unspecified; E11.9 Type 2 diabetes mellitus without complications; Z88.0 Allergy status to penicillin; Z88.8 Allergy status to other drugs, medicaments and biological substances; Z98.890 Other specified postprocedural states
CPT/HCPCS: 99285; 96374; 71045; 96375; 84484; 80053; 83880; 85027; 82948; 36415; 93005; J0360; J1940; J3490

== ENCOUNTER → 2024-07-25 | Outpatient (CLI) | payer OTHER ==
[~2024-07-25] MED LIST changes: +AEC81 PO; +ALBU90AE3 IH; +ATOR20TA65 PO; +FURO20TA4 PO; +LINA5TAB PO; -LISI10TA24 PO; +LOSA100T59 PO; +MECL-262 PO; +NIFE-79 PO; +POTA-200 PO; +PRED20TA3 PO
--- NOTE | 2024-07-25 16:03 | HMCIMG ---
THORACIC SPINE 2VWS REASON: PAIN IN THORACIC SPINE COMPARISON: None. TECHNIQUE: 2 images were obtained. FINDINGS: There are normal appearing vertebral bodies. Interspace heights are well preserved. There are anterior and right lateral osteophytes in the midthoracic spine. There are no compression or other fractures. There are no visible fractures. Soft tissues appear unremarkable. IMPRESSION: 1. Mild thoracic degenerative changes, no evidence of compression fracture.
--- NOTE | 2024-07-25 16:03 | HMCIMG ---
EXAM: LUMBAR SPINE 2-3VWS REASON: LOW BACK PAIN. COMPARISON: None. TECHNIQUE: 3 views of the lumbar spine were obtained. FINDINGS: There is normal appearance of the lumbar vertebral bodies. Disc interspace heights are preserved. Alignment is normal. There are moderate degenerative changes posterior elements, L3, L4 and L5. There is calcification of the aorta without evidence of aneurysm. There are no visible fractures. Soft tissues appear otherwise unremarkable. IMPRESSION: 1. 1. Mild lumbar degenerative change, no acute finding.
== END | disposition home or self-care (01) ==
LOC: RAH 14:49
PROVIDERS: ATTEND Internal Medicine
DX: M47.814 Spondylosis without myelopathy or radiculopathy, thoracic region (principal); M47.816 Spondylosis without myelopathy or radiculopathy, lumbar region; M25.78 Osteophyte, vertebrae; M54.6 Pain in thoracic spine; M54.50 Low back pain, unspecified; I70.0 Atherosclerosis of aorta
CPT/HCPCS: 72070; 72100